=== PATIENT | male | born 1935 | race Caucasian/White ===

== ENCOUNTER 2019-08-16 09:07 | Emergency (ER) | payer MEDICARE, OTHER ==
[~2019-08-16] VITALS: Ht 172.7 cm; Wt 90.0 kg
--- NOTE | 2019-08-16 09:26 | EKG ---
[facility] [address] [place] [address] Test Date: 2019-08-16 Test Time: 09:18:08 Pat Name: EMILE CANDELARIO Department: Room: Gender: M [employer]: : 1935 Requested By: KIYA BRAVO Order Number: [id number] Reading MD: Leo Montalvo Measurements Intervals [place] Rate: 81 P: [place]: QRS: 47 QRSD: 84 T: 28 QT: 400 QTc: 465 Interpretive Statements ATRIAL FIBRILLATION NON-SPECIFIC ST/T CHANGES Electronically Signed On 08-17-2019 8:19:56 CDT by Leo Montalvo
[2019-08-16 09:42] LABS: CALCIUM 8.5 mg/dL (8.5-10.1); CREATININE 1.1 mg/dL (0.7-1.3); GFR 63.8; POTASSIUM 3.6 mmol/L (3.5-5.1)
--- NOTE | 2019-08-16 09:44 | RAD ---
EXAM: CHEST 1 VIEW History: Shortness of breath COMPARISON: None available. TECHNIQUE: Single portable radiograph of the chest FINDINGS: The cardiac silhouette is unremarkable. There is a small lucency identified in the lateral upper lobe could be small pneumothorax or skinfold. IMPRESSION: Small lucency identified in the left upper lobe of the lung laterally could be a small pneumothorax or skinfold. Consider CT chest for better evaluation. FOR INTERNAL CODING PURPOSES Critical result: Findings discussed with KIYA BRAVO at 08/16/2019 9:41 AM. RESULT CODE: (C) Electronically signed by: Chato Hurley MD (08/16/2019 9:41 AM) [id number]
[2019-08-16 09:47] LABS: ALBUMIN 2.7 g/dL (3.4-5.0); ALBUMIN/GLOBULIN RATIO 0.6 (1.0-1.7); BASO % 1 % (0-3); EOS % 0 % (0-3); HEMATOCRIT 36.9 % (39.0-53.0); HEMOGLOBIN 11.7 g/dL (13.0-17.5); LYMPH # 1.5 x10^3/uL (1.0-4.8); LYMPH % 20 % (24-48); MEAN CORPUSCULAR HEMOGLOBIN 26 pg (25-35); MEAN CORPUSCULAR HGB CONC 32 g/dL (31-37); MEAN CORPUSCULAR VOLUME 82 fL (79-100); MONO # 0.5 x10^3/uL (0.0-1.1); MONO % 7 % (0-9); NEUT # 5.2 x10^3/uL (1.8-7.7); NEUT % 72 % (31-73); PLATELET COUNT 380 x10^3/uL (140-400); RED BLOOD COUNT 4.52 x10^6/uL (4.30-5.70); RED CELL DISTRIBUTION WIDTH 15.7 % (11.5-14.5); TOTAL BILIRUBIN 0.3 mg/dL (0.2-1.0); TOTAL PROTEIN 7.1 g/dL (6.4-8.2); WHITE BLOOD COUNT 7.2 x10^3/uL (4.0-11.0)
[2019-08-16 10:12] VITALS: BP 113/53
--- NOTE | 2019-08-16 11:06 | RAD ---
EXAM: CHEST AP ONLY INDICATION: Possible pneumothorax. TECHNIQUE: Single view COMPARISON: Earlier same day chest x-ray FINDINGS: The heart size is normal. The great vessels appear unremarkable. There is no hilar or mediastinal mass. The lungs show linear densities of the medial left lung base. There is no pleural effusion or pneumothorax. There is the questioned pneumothorax along the left lung apex does not persist on follow-up imaging and most likely represented a skinfold. An incidental lump on the back of the patient's lower neck near the cervicothoracic junction was identified during patient positioning and is marked with a BB marker to the left of the lower cervical spine. There are no significant osseous abnormalities. IMPRESSION: Linear densities of the medial left lung base could reflect atelectasis but there is no evidence of a pneumothorax. Discussed with Dr. Krause by telephone at 11:02 AM August 16, 2019. Electronically signed by: Hector Alex MD (08/16/2019 11:03 AM) [id number]
--- NOTE | 2019-08-16 11:36 | PHYS DOC ---
Past Medical History Past Medical History: Depression, Diabetes-Type I, GERD, High Cholesterol, Hypertension Past Surgical History: No Surgical History Smoking Status: Unknown if ever smoked Alcohol Use: None Adult General Chief Complaint Chief Complaint: BLOOD SUGAR PROBLEM HPI HPI Patient is a 84 year old male long-term patient known to be COVID-10 positive who presents with initial reports of SOA per long-term staff. Patient O2 sat on high 90's RA and in no distress in EMS arrival. Blood sugar noted to be 34. Oral glucose and glucagon given with improved mentation.[] Review of Systems Review of Systems ROS as per HPI. All other systems were reviewed and found to be within normal limits, except as documented in this note. Allergies Allergies Allergies Coded Allergies Type Severity Reaction Last Updated Verified No Known Drug Allergies 08/16/19 No Physical Exam Physical Exam Constitutional: Well developed, well nourished, no acute distress, non-toxic appearance. [] HENT: Normocephalic, atraumatic, bilateral external ears normal, oropharynx moist, nose normal. [] Eyes: PERRLA, EOMI, conjunctiva normal. [] Neck: Normal range of motion. [] Cardiovascular:Heart rate regular rhythm, no murmur [] Lungs & Thorax: Bilateral breath sounds clear to auscultation. [] Abdomen: Bowel sounds normal, soft, no tenderness. [] Skin: Warm, dry, no erythema, no rash. [] Back: No tenderness. [] Extremities: No tenderness, no edema. [] Neurologic: Alert and oriented, normal motor function, normal sensory function, no focal deficits noted. [] Psychologic: Affect normal, judgement normal, mood normal. [] Current Patient Data Vital Signs Vital Signs Date Time Temp Pulse Resp B/P (MAP) Pulse Ox O2 Delivery O2 Flow Rate FiO2 08/16/19 10:12 64 18 113/53 (73) 97 Room Air 08/16/19 09:13 97.8 97.8 Lab Values Laboratory Tests Test 08/16/19 09:14 08/16/19 09:20 08/16/19 10:39 Glucose (Fingerstick) 55 mg/dL (70-99) L 293 mg/dL (70-99) H White Blood Count 7.2 x10^3/uL (4.0-11.0) Red Blood Count 4.52 x10^6/uL (4.30-5.70) Hemoglobin 11.7 g/dL (13.0-17.5) L Hematocrit 36.9 % (39.0-53.0) L Mean Corpuscular Volume 82 fL (79-100) Mean Corpuscular Hemoglobin 26 pg (25-35) Mean Corpuscular Hemoglobin Concent 32 g/dL (31-37) Red Cell Distribution Width 15.7 % (11.5-14.5) H Platelet Count 380 x10^3/uL (140-400) Neutrophils (%) (Auto) 72 % (31-73) Lymphocytes (%) (Auto) 20 % (24-48) L Monocytes (%) (Auto) 7 % (0-9) Eosinophils (%) (Auto) 0 % (0-3) Basophils (%) (Auto) 1 % (0-3) Neutrophils # (Auto) 5.2 x10^3/uL (1.8-7.7) Lymphocytes # (Auto) 1.5 x10^3/uL (1.0-4.8) Monocytes # (Auto) 0.5 x10^3/uL (0.0-1.1) Eosinophils # (Auto) 0.0 x10^3/uL (0.0-0.7) Basophils # (Auto) 0.0 x10^3/uL (0.0-0.2) Sodium Level 138 mmol/L (136-145) Potassium Level 3.6 mmol/L (3.5-5.1) Chloride Level 103 mmol/L (98-107) Carbon Dioxide Level 26 mmol/L (21-32) Anion Gap 9 (6-14) Blood Urea Nitrogen 12 mg/dL (8-26) Creatinine 1.1 mg/dL (0.7-1.3) Estimated GFR (Cockcroft-Gault) 63.8 BUN/Creatinine Ratio 11 (6-20) Glucose Level 73 mg/dL (70-99) Calcium Level 8.5 mg/dL (8.5-10.1) Total Bilirubin 0.3 mg/dL (0.2-1.0) Aspartate Amino Transferase (AST) 18 U/L (15-37) Alanine Aminotransferase (ALT) 10 U/L (16-63) L Alkaline Phosphatase 124 U/L (46-116) H Troponin I Quantitative < 0.017 ng/mL (0.000-0.055) Total Protein 7.1 g/dL (6.4-8.2) Albumin 2.7 g/dL (3.4-5.0) L Albumin/Globulin Ratio 0.6 (1.0-1.7) L Laboratory Tests 08/16/19 09:20 Laboratory Tests 08/16/19 09:20 EKG EKG [EKG: reviewed] Interpretation Time: CXR: Radiology reports reviewed. No pneumothorax on secondary report. Atelectasis on left lung base. Radiology/Procedures Radiology/Procedures [] Course & Med Decision Making Course & Med Decision Making Pertinent Labs and Imaging studies reviewed. (See chart for details) [Patient returned to baseline mental status with treatment of low blood sugar. Labwork and imaging reviewed and otherwise unremarkable. Patient with dc to long-term at his request. ] Dragon Disclaimer Dragon Disclaimer This electronic medical record was generated, in whole or in part, using a voice recognition dictation system. Departure Departure Impression: Primary Impression: Hypoglycemia Disposition: 01 HOME, SELF-CARE Condition: STABLE Referrals: DAGO YEH MD (PCP) Patient Instructions: Hypoglycemia, [id number] Additional Instructions: Pleas check blood sugar every 2 hours for the next 12 hours and adjust insulin schedule to oral carb intake status. Contact PCP regarding management of insulin. KIYA BRAVO DO Aug 16, 2019 11:35
== END 2019-08-16 12:43 | disposition home or self-care (01) ==
LOC: ER 09:07
DX: U07.1 COVID-19 (principal); E10.649 Type 1 diabetes mellitus with hypoglycemia without coma; R06.02 Shortness of breath; K21.9 Gastro-esophageal reflux disease without esophagitis; E78.00 Pure hypercholesterolemia, unspecified; I10 Essential (primary) hypertension
CPT/HCPCS: 36415; 71045; 80053; 82962; 84484; 85025; 93005; 99285